=== PATIENT | male | born 1960 | race Caucasian/White ===

== ENCOUNTER 2024-09-18 03:39 | Emergency (ER) | payer SELFPAY ==
[~2024-09-18] VITALS: Ht 177.8 cm; Wt 77.1 kg
[2024-09-18] MEDS ORDERED: methylPREDNISolone sod succ 125 MG VIAL IM ONE (06:45)
[2024-09-18] MEDS ORDERED: ZITHROMAX250 MG PO (06:46)
[2024-09-18] MEDS ORDERED: PREDNISONE20 M1 PO (06:46)
== END 2024-09-18 07:07 | disposition home or self-care (01) ==
LOC: ED 03:39
DX: B34.9 Viral infection, unspecified (principal); Z20.822 Contact with and (suspected) exposure to COVID-19